=== PATIENT | female | born 1995 | race Caucasian/White ===

== ENCOUNTER 2021-07-30 01:57 | Emergency (ER) | payer BC, OTHER ==
[2021-07-30 02:21] VITALS: BP 121/72; PULSE 103; TEMP 98; BMI 28.3
== END 2021-07-30 07:50 | disposition home or self-care (01) ==
LOC: JER 01:57
DX: L03.211 Cellulitis of face (principal)
CPT/HCPCS: 99283-25

== ENCOUNTER 2023-02-10 12:22 | Emergency (ER) | payer OTHER ==
[2023-02-10 12:28] VITALS: BP 125/80; PULSE 82; RESP 16; TEMP 98.5; BMI 31.1
[2023-02-10] MEDS ORDERED: TETRACAINE 0.5% OPHTH SOLN 2 ML BOTTLE ONE (12:44)
[2023-02-10] MEDS ORDERED: FLUORESCEIN NA 1 EA STRIP ONE (12:44)
[2023-02-10] MEDS ORDERED: TETRACAINE 0.5% HCL 0.6ML DROPPER.BOTTLE OD ONE (13:06)
[2023-02-10] MEDS ORDERED: FLUORESCEIN NA 1 EA STRIP OD ONE (13:07)
== END 2023-02-10 13:09 | disposition home or self-care (01) ==
LOC: JERFT 12:22
DX: H57.89 Other specified disorders of eye and adnexa (principal); S05.01XA Injury of conjunctiva and corneal abrasion without foreign body, right eye, initial encounter; H53.71 Glare sensitivity; X58.XXXA Exposure to other specified factors, initial encounter
CPT/HCPCS: 99283-25